=== PATIENT | female | born 1990 | race Caucasian/White ===

== ENCOUNTER 2017-02-23 08:16 | Inpatient (IN) | payer OTHER ==
[~2017-02-23] VITALS: Ht 167.6 cm; Wt 81.4 kg
[2017-03-06] MEDS ORDERED: OXYTOCIN 30U/ 0.9% NaCL 500ML 500 ML IV ONE (05:22)
[2017-03-06] MEDS ORDERED: OXYTOCIN 30U/ 0.9% NaCL 500ML 500 ML IV PRN (05:22)
[2017-03-06] MEDS ORDERED: D5%-LACTATED RINGERS 1,000 ML IV SCH (05:22)
[2017-03-06] MEDS ORDERED: LACTATED RINGERS 1,000 ML IV SCH ×2 (05:22→10:40)
[2017-03-06 05:30] VITALS: BP 105/69
[2017-03-06] MEDS ORDERED: FENTANYL PF 100 MCG/2ML IVPush PRN (05:30)
[2017-03-06] MEDS ORDERED: ONDANSETRON 2MG/ML, 2ML IVPush PRN (05:30)
[2017-03-06] MEDS ORDERED: FENTANYL PF 100 MCG/2ML IV PRN (05:30)
[2017-03-06] MEDS ORDERED: CALCIUM CARBONATE 500 MG TAB.CHEW PO PRN ×2 (05:30→19:00)
[2017-03-06] MEDS ORDERED: PREN-3 PO (07:03)
[2017-03-06] MEDS ORDERED: NEWBORN KIT ONE (07:37)
[2017-03-06] MEDS ORDERED: OXYTOCIN 30U/ 0.9% NaCL 500ML 500 ML ONE (07:37)
[2017-03-06] MEDS ORDERED: FENTANYL/BUPIV./NS/PF 250 ML EPIDCONT SCH (10:40)
[2017-03-06] MEDS ORDERED: NALOXONE 0.4 MG/ML, 1ML IVPush PRN (11:00)
[2017-03-06] MEDS ORDERED: EPHEDRINE 50 MG/ML, 1ML IVPush PRN (11:00)
[2017-03-06] MEDS ORDERED: LACTATED RINGERS 1,000 ML IVBOLUS PRN (11:00)
[2017-03-06] MEDS ORDERED: FENTANYL PF 100 MCG/2ML ONE (12:03)
[2017-03-06] MEDS ORDERED: FENTANYL/BUPIV./NS/PF 250 ML EPIDCONT ONE (12:53)
[2017-03-06] MEDS ORDERED: BUPIVACAINE/PF 0.25% ONE (12:54)
[2017-03-06] MEDS ORDERED: MISOPROSTOL 200 MCG TABLET ONE (15:23)
[2017-03-06] MEDS ORDERED: MISOPROSTOL 200 MCG TABLET PR ONE (15:30)
[2017-03-06] MEDS: OXYTOCIN 30U/ 0.9% NaCL 500ML 500 ML IV SCH (18:55)
[2017-03-06] MEDS ORDERED: MISOPROSTOL 200 MCG TABLET PR PRN (19:00)
[2017-03-06] MEDS ORDERED: ONDANSETRON 2MG/ML, 2ML IV PRN (19:00)
[2017-03-06] MEDS ORDERED: OXYcodone IR 5MG TABLET PO PRN (19:00)
[2017-03-06] MEDS ORDERED: IBUPROFEN 600 MG TABLET ONE (19:21)
[2017-03-06] MEDS: IBUPROFEN 600 MG TABLET PO PRN (19:24)
[2017-03-06] MEDS: DOCUSATE 100 MG CAPSULE PO SCH (21:00)
[2017-03-06 21:55] VITALS: BP 113/59
[2017-03-07] MEDS: IBUPROFEN 600 MG TABLET PO PRN ×4 (02:16→22:31)
[2017-03-07 02:20] VITALS: BP 104/67
[2017-03-07 02:36] LABS: DIFF TOTAL CELLS COUNTED 100 CELL DIFF
[2017-03-07 02:39] LABS: VERIFY COUNTS? YES
[2017-03-07] MEDS: OXYTOCIN 30U/ 0.9% NaCL 500ML 500 ML IV SCH ×2 (04:55→14:55)
[2017-03-07] MEDS: DOCUSATE 100 MG CAPSULE PO SCH ×2 (09:13→22:32)
[2017-03-07] MEDS: PRENATAL VIT/IRON/FA 1 EACH TABLET PO SCH (09:13)
[2017-03-07] MEDS: OXYcodone/APAP 5/325MG TABLET PO PRN ×3 (09:13→19:28)
[2017-03-07 09:15] VITALS: BP 111/71
[2017-03-07 12:45] VITALS: BP 112/72
[2017-03-07 16:00] VITALS: BP 108/72
[2017-03-07 20:00] VITALS: BP 98/63
[2017-03-08] MEDS: OXYcodone/APAP 5/325MG TABLET PO PRN ×3 (01:04→09:13)
[2017-03-08] MEDS: IBUPROFEN 600 MG TABLET PO PRN (04:48)
[2017-03-08 07:35] VITALS: BP 115/70
[2017-03-08] MEDS: PRENATAL VIT/IRON/FA 1 EACH TABLET PO SCH (07:35)
[2017-03-08] MEDS: DOCUSATE 100 MG CAPSULE PO SCH (07:35)
[2017-03-08] MEDS ORDERED: IBUP-1222 PO (10:46)
[2017-03-08] MEDS ORDERED: OXYC-302 PO (10:47)
[2017-03-08] MEDS ORDERED: DOCU-30 PO (10:47)
== END 2017-03-08 12:30 | disposition home or self-care (01) | DRG 775 ==
LOC: LDIP 03-06 05:20 → 2NW 03-06 21:21
PROVIDERS: ADMIT Obstetrics & Gynecology; ATTEND Obstetrics & Gynecology
PROC: 10E0XZZ Delivery of Products of Conception, External Approach (ICD-10-PCS; principal; 2017-03-06)
PROC: 0DQR0ZZ Repair Anal Sphincter, Open Approach (ICD-10-PCS; 2017-03-06)
PROC: 10907ZC Drainage of Amniotic Fluid, Therapeutic from Products of Conception, Via Natural or Artificial Opening (ICD-10-PCS; 2017-03-06)
PROC: 00HU33Z Insertion of Infusion Device into Spinal Canal, Percutaneous Approach (ICD-10-PCS; 2017-03-06)
PROC: 3E0R3CZ (ICD-10-PCS; 2017-03-06)
DX: O48.0 Post-term pregnancy (principal); O70.20 Third degree perineal laceration during delivery, unspecified; Z37.0 Single live birth; Z3A.41 41 weeks gestation of pregnancy
CPT/HCPCS: 36415; 85025; 86850; 86900; J3010; J2590; J7120; J7121

== ENCOUNTER 2021-02-21 09:15 | Inpatient (IN) | payer OTHER ==
[~2021-02-21] VITALS: Ht 167.6 cm; Wt 77.3 kg
[~2021-02-21 09:15] MED LIST: DOCU-131 PO; IBUP-1222 PO; OXYC1TAB14 PO; PREN-3 PO
[2021-02-22] MEDS ORDERED: NEWBORN KIT ONE (09:56)
[2021-02-22] MEDS ORDERED: FENTANYL PF 100 MCG/2ML IVPush PRN (10:00)
[2021-02-22] MEDS ORDERED: D5%-LACTATED RINGERS 1,000 ML IV SCH (10:00)
[2021-02-22] MEDS ORDERED: TERBUTALINE 1 MG/ML, 1ML SQ PRN (10:00)
[2021-02-22] MEDS ORDERED: TERBUTALINE 1 MG/ML, 1ML IVPush PRN (10:00)
[2021-02-22] MEDS ORDERED: PLEASE ENTER HEIGHT AND WEIGHT MC SCH (10:00)
[2021-02-22] MEDS ORDERED: ONDANSETRON 2MG/ML, 2ML IVPush PRN (10:00)
[2021-02-22] MEDS ORDERED: OXYTOCIN 30U/ 0.9% NaCL 500ML 500 ML IV PRN (10:00)
[2021-02-22] MEDS ORDERED: OXYTOCIN 30U/ 0.9% NaCL 500ML 500 ML IV ONE (10:00)
[2021-02-22] MEDS ORDERED: LACTATED RINGERS 1,000 ML IV SCH ×2 (10:00→13:30)
[2021-02-22 10:19] LABS: BASOPHILS % (AUTO) 0 % (0-1); EOSINOPHILS % (AUTO) 1 % (1-7); LYMPHOCYTES % (AUTO) 21 % (22-44); MEAN CORPUSCULAR HEMOGLOBIN 30.5 pg (27.0-34.8); MEAN CORPUSCULAR HGB CONC 33.1 g/dL (32.4-35.8); MEAN PLATELET VOLUME 8.6 fL (7.4-10.4); MONOCYTES % (AUTO) 5 % (2-9); NEUTROPHILS % (AUTO) 73 % (42-75); PLATELET COUNT 269 x10^3/uL (130-400); RED BLOOD COUNT 3.91 x10^6/uL (3.82-5.3); RED CELL DISTRIBUTION WIDTH 13.2 % (9.6-15.2)
[2021-02-22 10:20] LABS: MD NO
[2021-02-22] MEDS ORDERED: LIDOCAINE 1%, 20ML ONE (10:24)
[2021-02-22] MEDS ORDERED: MISOPROSTOL 200 MCG TABLET ONE (10:24)
[2021-02-22 10:40] VITALS: BP 110/58
[2021-02-22] MEDS ORDERED: BUPIVACAINE 0.25% ONE (13:17)
[2021-02-22] MEDS ORDERED: NALOXONE 0.4 MG/ML, 1ML IVPush PRN (13:30)
[2021-02-22] MEDS ORDERED: LACTATED RINGERS 1,000 ML IVBOLUS PRN (13:30)
[2021-02-22] MEDS ORDERED: EPHEDRINE 50 MG/ML, 1ML IVPush PRN (13:30)
[2021-02-22] MEDS ORDERED: FENTANYL/BUPIV./NS/PF 250 ML EPIDCONT SCH (13:30)
[2021-02-22] MEDS ORDERED: ACETAMINOPHEN 325 MG TABLET PO PRN ×2 (18:00)
[2021-02-22] MEDS ORDERED: MISOPROSTOL 200 MCG TABLET PR PRN (18:00)
[2021-02-22] MEDS ORDERED: ONDANSETRON 2MG/ML, 2ML IV PRN (18:00)
[2021-02-22] MEDS: OXYTOCIN 30U/ 0.9% NaCL 500ML 500 ML IV SCH (18:00)
[2021-02-22] MEDS ORDERED: DOCUSATE 100 MG CAPSULE PO PRN (18:00)
[2021-02-22] MEDS ORDERED: SIMETHICONE 80 MG CHEW TAB PO PRN (18:00)
[2021-02-22] MEDS ORDERED: METHYLERGONOVINE 0.2 MG/ML IM PRN (18:00)
[2021-02-22] MEDS ORDERED: OXYcodone/APAP 5/325MG TABLET PO PRN (18:00)
[2021-02-22 20:05] VITALS: BP 102/61
[2021-02-22] MEDS: IBUPROFEN 800 MG TABLET PO PRN (20:05)
[2021-02-22 23:30] VITALS: BP 107/69
[2021-02-23 01:28] LABS: BASOPHILS % (AUTO) 1 % (0-1); EOSINOPHILS % (AUTO) 0 % (1-7); LYMPHOCYTES % (AUTO) 13 % (22-44); MEAN CORPUSCULAR HEMOGLOBIN 30.8 pg (27.0-34.8); MEAN CORPUSCULAR HGB CONC 33.6 g/dL (32.4-35.8); MEAN PLATELET VOLUME 8.5 fL (7.4-10.4); MONOCYTES % (AUTO) 4 % (2-9); NEUTROPHILS % (AUTO) 82 % (42-75); PLATELET COUNT 231 x10^3/uL (130-400); RED BLOOD COUNT 3.47 x10^6/uL (3.82-5.3)
[2021-02-23 01:30] LABS: MD NO
[2021-02-23] MEDS: OXYTOCIN 30U/ 0.9% NaCL 500ML 500 ML IV SCH (04:00)
[2021-02-23 04:45] VITALS: BP 94/54
[2021-02-23] MEDS: IBUPROFEN 800 MG TABLET PO PRN ×2 (04:56→12:58)
[2021-02-23 07:30] VITALS: BP 110/72
[2021-02-23] MEDS ORDERED: IBUP-1222 PO (07:44)
[2021-02-23] MEDS: OXYcodone/APAP 5/325MG TABLET PO PRN ×3 (08:16→16:02)
[2021-02-23] MEDS ORDERED: PRENATAL VIT/IRON/FA 1 EACH TABLET PO SCH (09:00)
[2021-02-23 11:25] VITALS: BP 107/68
== END 2021-02-23 17:20 | disposition home or self-care (01) | DRG 807 ==
LOC: LDIP 02-22 09:05 → 2NW 02-22 19:58
PROVIDERS: ADMIT Obstetrics & Gynecology; ATTEND Obstetrics & Gynecology
PROC: 10E0XZZ Delivery of Products of Conception, External Approach (ICD-10-PCS; principal; 2021-02-22)
PROC: 0KQM0ZZ Repair Perineum Muscle, Open Approach (ICD-10-PCS; 2021-02-22)
PROC: 10907ZC Drainage of Amniotic Fluid, Therapeutic from Products of Conception, Via Natural or Artificial Opening (ICD-10-PCS; 2021-02-22)
PROC: 3E033VJ Introduction of Other Hormone into Peripheral Vein, Percutaneous Approach (ICD-10-PCS; 2021-02-22)
PROC: 3E0R3BZ Introduction of Anesthetic Agent into Spinal Canal, Percutaneous Approach (ICD-10-PCS; 2021-02-22)
PROC: 00HU33Z Insertion of Infusion Device into Spinal Canal, Percutaneous Approach (ICD-10-PCS; 2021-02-22)
DX: O70.1 Second degree perineal laceration during delivery (principal); Z37.0 Single live birth; Z3A.40 40 weeks gestation of pregnancy; Z20.822 Contact with and (suspected) exposure to COVID-19
CPT/HCPCS: 36415; 82962; 85025; 86592; 86850; 86900; 87635; G0378; J2405; J2590; J7120